=== PATIENT | female | born 1950 | race Caucasian/White ===

== ENCOUNTER 2020-07-11 06:00 | Outpatient (RCR) | payer MEDICARE, MEDICAID, SELFPAY | END 2020-08-04 23:59 | disposition home or self-care (01) | LOC: MOT 06:00 | PROVIDERS: Family Provider Nurse Practitioner Family; PCP Family Medicine; Referring Provider Family Medicine; Visit Provider Family Medicine | DX: R60.0 Localized edema (principal) | CPT/HCPCS: 97140; 97166 ==

== ENCOUNTER 2020-08-05 06:00 | Outpatient (RCR) | payer MEDICARE, MEDICAID, SELFPAY | END 2020-09-04 23:59 | disposition home or self-care (01) | LOC: MOT 06:00 | PROVIDERS: PCP Family Medicine; Referring Provider Family Medicine; Visit Provider Family Medicine | DX: R60.0 Localized edema (principal); R60.9 Edema, unspecified | CPT/HCPCS: 97140 ==

== ENCOUNTER 2020-11-17 06:00 | Outpatient (RCR) | payer MEDICARE, MEDICAID, SELFPAY | END 2020-12-05 23:59 | disposition home or self-care (01) | LOC: MOT 06:00 | PROVIDERS: PCP Family Medicine; Referring Provider Family Medicine; Visit Provider Family Medicine | DX: M54.2 Cervicalgia (principal) | CPT/HCPCS: 97110; 97140; 97166 ==

== ENCOUNTER 2020-12-06 06:00 | Outpatient (RCR) | payer MEDICARE, MEDICAID, SELFPAY | END 2021-01-04 23:59 | disposition home or self-care (01) | LOC: MOT 06:00 | PROVIDERS: PCP Family Medicine; Referring Provider Family Medicine; Visit Provider Family Medicine | DX: R60.0 Localized edema (principal) | CPT/HCPCS: 97110; 97140 ==

== ENCOUNTER 2021-02-23 06:00 | Outpatient (RCR) | payer MEDICARE, MEDICAID, SELFPAY | END 2021-03-06 23:59 | disposition home or self-care (01) | LOC: MOT 06:00 | PROVIDERS: PCP Family Medicine; Referring Provider Family Medicine; Visit Provider Family Medicine | DX: I89.0 Lymphedema, not elsewhere classified (principal); M54.2 Cervicalgia | CPT/HCPCS: 97140; 97166 ==

== ENCOUNTER 2021-03-07 11:53 | Outpatient (RCR) | payer MEDICARE, MEDICAID, SELFPAY | END 2021-04-06 23:59 | disposition home or self-care (01) | LOC: MOT 11:53 | PROVIDERS: PCP Family Medicine; Referring Provider Family Medicine; Visit Provider Family Medicine | DX: I89.0 Lymphedema, not elsewhere classified (principal); M54.2 Cervicalgia | CPT/HCPCS: 97140 ==

== ENCOUNTER 2021-04-07 06:00 | Outpatient (RCR) | payer MEDICARE, MEDICAID, SELFPAY | END 2021-05-07 23:59 | disposition home or self-care (01) | LOC: MOT 06:00 | PROVIDERS: PCP Family Medicine; Referring Provider Family Medicine; Visit Provider Family Medicine | DX: I89.0 Lymphedema, not elsewhere classified (principal); M54.2 Cervicalgia | CPT/HCPCS: 97110; 97140 ==

== ENCOUNTER 2021-05-01 21:35 | Emergency (ER) | payer MEDICARE, MEDICAID, SELFPAY ==
--- NOTE | 2021-05-01 21:37 | USR_ITS ---
PROCEDURE INFORMATION: Exam: US Duplex Left Lower Extremity Veins, Limited Exam date and time: 05/01/2021 9:37 PM Age: 71 years old Clinical indication: Lymphedema; Lower extremity, left; Additional info: Leg pain TECHNIQUE: Imaging protocol: Real-time Duplex ultrasound of the Left Lower Extremity with 2-D magaña scale, color Doppler flow and spectral waveform analysis with image documentation. Limited exam focused on the left lower extremity veins. COMPARISON: No relevant prior studies available. FINDINGS: Left deep veins: Unremarkable. The common femoral, femoral, proximal profunda femoral and popliteal veins are patent without thrombus. Normal Doppler waveforms. Normal compressibility and/or augmentation response. Left superficial veins: Unremarkable. Saphenofemoral junction is patent without thrombus. Soft tissues: Unremarkable. US/CV venous duplex [facility] [id number] IMPRESSION: No evidence of deep vein thrombosis.
[2021-05-01 21:44] VITALS: BP 121/61; PULSE 120; RESP 16; TEMP 36.6; O2SAT 97; BMI 45.8
--- NOTE | 2021-05-01 22:15 | ED_ITS ---
HPI - General Adult General: Chief complaint: General Medical Stated complaint: poss blood clot in left leg Time Seen by Provider: 05/01/21 22:09 Source: patient Mode of arrival: ambulatory Limitations: no limitations History of Present Illness: 71-year-old female who has a history of breast cancer is on chemotherapy states that she has been having increasing left lower leg swelling over the last few days states that she had an open wound appeared 2 weeks ago started with some erythema and swelling after that states her physical therapist was concerned she had a blood clot and sent her up here for that she is not had any fevers not been on antibiotics denies any chest pain or shortness of breath denies any worsening improving factors. She is on blood thinners. Associated symptoms: Deny chest pain, dyspnea, headache(s), nausea, rash or vomiting Review of Systems Const: Denies: fever(s), chills, body aches or change in appetite Eyes: Denies: blurry vision or eye discomfort ENMT: Denies: throat pain or dental pain Card: Denies: chest pain Resp: Denies: dyspnea GI: Denies: abdominal pain, nausea, vomiting or diarrhea : Denies: dysuria Musc: Reports: extremity pain and extremity swelling Skin/Breast: Denies: rash Neuro: Denies: headache(s) Psych: Denies: depression Anrde/Lymph: Denies: easy bruising All/Imm: Denies: urticaria PFSH ED PFSH: Medical History (Updated 05/01/21 @ 23:47 by Gonzalo Castillo MD) Breast cancer Social History Substance/Drug Use: never Physical Exam Const: COMMON NORMALS: no acute distress, patient oriented x3 and healthy appearing HENMT: COMMON NORMALS: normocephalic and atraumatic HEAD & SCALP: normocephalic and atraumatic Eye: COMMON NORMALS: Equal, round and reactive pupils present and EOMs intact bilaterally PUPIL: Yes Equal, round and reactive pupils present Neck/C-Spine: COMMON NORMALS: full ROM and supple Chest: COMMONS NORMALS: normal inspection of the chest and normal palpation of entire chest wall Resp: COMMON NORMALS: normal respiratory effort, No retractions, No use of accessory muscles and clear to auscultation bilaterally AUSCULTATION: clear to auscultation bilaterally Cardio: COMMON NORMALS: regular rate, regular rhythm and No murmurs present (Cardio) RATE: regular rate RHYTHM: regular rhythm GI: COMMON NORMALS: Normal to inspection, nondistended, normoactive bowel sounds present, Soft to palpation, non-tender and no masses PALPATION: Yes Soft to palpation Extremity: COMMON NORMALS: full ROM OTHER: Swelling erythema tenderness to left calf does have a open wound to the lateral portion of her calf slight cellulitis around it wound is superficial roughly 4 cm across Neuro: COMMON NORMALS: patient oriented x3, moves all extremities and no focal motor deficits Psych: COMMON NORMALS: mental status grossly normal, Normal thought process present and cooperative THOUGHT PROCESS: Normal thought process present Skin: COMMON NORMALS: no rashes or lesions noted and no wounds GENERAL SKIN EXAM: no rashes or lesions noted Course Vital Signs: Vital signs: Vital Signs Temperature 97.8 F 05/01/21 21:44 Pulse Rate 96 05/01/21 23:14 Respiratory Rate 22 H 05/01/21 23:14 Blood Pressure 121/61 05/01/21 21:44 Pulse Oximetry 96 05/01/21 23:14 [facility] - General Adult Medical Decision Making Patient presents here with left leg pain and slight cellulitis no DVT noted blood work here all looks normal we will start her on Bactrim she stable for discharge she is to follow-up with PCP and return if worsening. Lab Data : 05/01/21 22:43 05/01/21 22:43 Radiology Impressions Venous Duplex 05/01/21 21:37 IMPRESSION: No evidence of deep vein thrombosis. Laboratory Results WBC 6.5 10^3/uL (4.0-10.0) 05/01/21 22:43 Corrected WBC 6.1 10^3/cmm (4.8-10.8) 05/01/21 22:43 RBC 2.33 10^6/uL (4.1-5.3) L 05/01/21 22:43 Hgb 7.8 g/dL (11.5-15.3) L 05/01/21 22:43 Hct 24.4 % (37.0-47.0) L 05/01/21 22:43 MCV 104.7 fl (81-99) H 05/01/21 22:43 MCH 33.5 pg (28.0-34.0) 05/01/21 22:43 MCHC 32.0 g/dL (30.0-36.0) 05/01/21 22:43 RDW 17.1 % (12.1-15.1) H 05/01/21 22:43 Plt Count 146 10^3/cmm (130-400) 05/01/21 22:43 MPV 11.6 fL (7.4-10.4) H 05/01/21 22:43 Lymph % (Auto) Not Reportable 05/01/21:43 Bland % (Auto) Not Reportable 05/01/21:43 Lymph # (Auto) Not Reportable 05/01/21:43 Bland # (Auto) Not Reportable 05/01/21: Total Counted 100 (0-100) 05/01/21 22: Atypical Lymphs % 2.0 % (0-5) 05/01/21 22: Absolute Neutrophils 4.2 10^3/cmm (1.4-6.5) 05/01/21 22: Segmented Neutrophils 44 % 05/01/21 22: Abs Segm Neuts (Man) 2.9 10/cmm (1.6-7.1) 05/01/21 22: Band Neutrophils 21.0 % 05/01/21: Abs Band Neuts (Man) 1.4 10^3/cmm (0.0-1.2) H 05/01/21 22:43 Absolute Lymphocytes 1.1 10^3/cmm (1.2-3.4) L 05/01/21 22:43 Lymphocytes (Manual) 15 % 05/01/21 22:43 Monocytes (Manual) 13.0 % 05/01/21 22:43 Absolute Monocytes 0.8 10^3/cmm (0.1-0.6) H 05/01/21 22:43 Eosinophils (Manual) 2 % 05/01/21: Absolute Eosinophils 0.1 10^3/cmm (0.0-0.7) 05/01/21 22:43 Basophils (Manual) 0.0 % 05/01/21: Absolute Basophils 0.0 10^3/cmm (0.0-0.2) 05/01/21 22:43 Metamyelocytes 2.0 % 05/01/21 22:43 Myelocytes 1.0 % 05/01/21 22:43 Nucleated RBCs 7.0 /100WBC (0-1) H 05/01/21 22:43 Pathologist Review Yes 05/01/21 22:43 Platelet Estimate Normal (Normal) 05/01/21 22:43 Polychromasia 1+ H 05/01/21 22:43 Basophilic Stippling Trace 05/01/21 22:43 PT 24.40 SECONDS (12.1-14.9) H 05/01/21 22:43 INR 2.14 (0.8-1.2) H 05/01/21 22:43 Sodium 141 mmol/L (136-145) 05/01/21 22:43 Potassium 3.4 mmol/L (3.5-5.1) L 05/01/21 22:43 Chloride 103 mmol/L (98-107) 05/01/21 22:43 Carbon Dioxide 27 mmol/L (22-29) 05/01/21 22:43 Anion Gap 14.4 (5-19) 05/01/21 22:43 BUN 18 mg/dL (8-23) 05/01/21 22:43 Creatinine 1.1 mg/dL (0.5-0.9) H 05/01/21 22:43 GFR Calculation Not Reportable 05/01/21 22:43 Glucose 79 mg/dL (65-115) 05/01/21 22:43 Calculated Osmolality 293 mOsm/kg (285-295) 05/01/21 22:43 Calcium 7.9 mg/dL (8.5-10.5) L 05/01/21 22:43 Discharge Plan Discharge Patient Disposition: Home Clinical Impression: Left leg pain, Cellulitis Prescriptions: New Bactrim DS 800-160 mg tablet 1 tab PO BID 10 Days Qty: 20 0RF Discharge Orders: Discharge ED (Routine); Ordered 05/01/21 Ordered By: Gonzalo Castillo Referrals: Hank Dick DO [Primary Care Provider] - 1-3 days Discharge Diet: Advance as tolerated Discharge Activity: Resume usual activity Patient Instructions: Cellulitis (ED) Coding Level of Care Code ED [employer] Consultant for Chg Fwd Exam Comprehensive
[2021-05-01 22:51] LABS: Hematocrit 24.4 % (37.0-47.0); Hemoglobin 7.8 g/dL (11.5-15.3); Mean Corpuscular Hemoglobin 33.5 pg (28.0-34.0); Mean Corpuscular Volume 104.7 fl (81-99); Mean Platelet Volume 11.6 fL (7.4-10.4); Platelet Count 146 10^3/cmm (130-400); Red Blood Count 2.33 10^6/uL (4.1-5.3); Red Cell Distribution Width 17.1 % (12.1-15.1); White Blood Count 6.5 10^3/uL (4.0-10.0)
[2021-05-01 23:01] LABS: INR 2.14 (0.8-1.2)
[2021-05-01 23:05] LABS: Anion Gap 14.4 (5-19); Blood Urea Nitrogen 18 mg/dL (8-23); Calcium 7.9 mg/dL (8.5-10.5); Carbon Dioxide 27 mmol/L (22-29); Chloride 103 mmol/L (98-107); Glucose 79 mg/dL (65-115); Osmolality Calculated 293 mOsm/kg (285-295); Potassium 3.4 mmol/L (3.5-5.1); Sodium 141 mmol/L (136-145)
[2021-05-01 23:06] VITALS: RESP 22
[2021-05-01] MEDS: ondansetron 2 mg/ML SDV 2 mL 4 MG IVP (23:06)
[2021-05-01] MEDS: morphine 4 mg/mL SDV 1 mL 2 MG IVP (23:06)
[2021-05-01 23:14] VITALS: PULSE 96; RESP 22; O2SAT 96
[2021-05-01 23:20] LABS: Slide Review Slide Review Perform
[2021-05-01 23:24] LABS: Absolute Eosinophils 0.1 10^3/cmm (0.0-0.7); Absolute Neutrophil 4.2 10^3/cmm (1.4-6.5); Absolute Segmented Neutrophil 2.9 10/cmm (1.6-7.1); Band Neutrophils Absolute 1.4 10^3/cmm (0.0-1.2); Basophilic Stippling Trace; Corrected White Blood Count 6.1 10^3/cmm (4.8-10.8); Eosinophils 2 %; Lymphocytes 15 %; Lymphocytes Absolute 1.1 10^3/cmm (1.2-3.4); Monocytes Absolute 0.8 10^3/cmm (0.1-0.6); Pathology Refferal Yes; Platelet Estimate Normal (Normal); Polychromasia 1+; Segmented Neutrophils 44 %; Total Cells Counted 100 (0-100)
[2021-05-01] MEDS: sodium chloride 0.9% 500 ML 999 ML IV (23:58)
[2021-05-02 00:33] VITALS: BP 99/76; PULSE 84; RESP 18; TEMP 36.7; O2SAT 99
[2021-05-02 00:34] VITALS: BP 99/76; PULSE 84; RESP 18; TEMP 37.1; O2SAT 99
[2021-05-03 13:58] LABS: Miscellaneous Test See Scanned Lab Rpt
== END 2021-05-02 00:47 | disposition home or self-care (01) ==
PROVIDERS: Emergency Provider Emergency Medicine; PCP Family Medicine
DX: L03.116 Cellulitis of left lower limb (principal); M79.605 Pain in left leg; Z85.3 Personal history of malignant neoplasm of breast; Z79.899 Other long term (current) drug therapy
CPT/HCPCS: 80048; 80500; 85007; 85025; 85610; 88184; 88185; 93971; 96374; 96375; 99283; J2270; J2405; J7040

== ENCOUNTER 2021-05-08 06:00 | Outpatient (RCR) | payer MEDICARE, MEDICAID, SELFPAY | END 2021-06-04 23:59 | disposition home or self-care (01) | LOC: MOT 06:00 | PROVIDERS: PCP Family Medicine; Visit Provider Family Medicine | DX: R60.0 Localized edema (principal); C50.912 Malignant neoplasm of unspecified site of left female breast; I50.32 Chronic diastolic (congestive) heart failure; Z90.13 Acquired absence of bilateral breasts and nipples | CPT/HCPCS: 97110; 97140; 97535 ==

== ENCOUNTER 2021-06-05 06:00 | Outpatient (RCR) | payer MEDICARE, MEDICAID, SELFPAY | END 2021-07-05 23:59 | disposition home or self-care (01) | LOC: MOT 06:00 | PROVIDERS: PCP Family Medicine; Visit Provider Family Medicine | DX: R60.0 Localized edema (principal); Z90.13 Acquired absence of bilateral breasts and nipples; I50.32 Chronic diastolic (congestive) heart failure; C50.912 Malignant neoplasm of unspecified site of left female breast | CPT/HCPCS: 97110; 97140; 97535 ==

== ENCOUNTER 2021-07-06 06:00 | Outpatient (RCR) | payer MEDICARE, MEDICAID, SELFPAY | END 2021-08-04 23:59 | disposition home or self-care (01) | LOC: MOT 06:00 | PROVIDERS: PCP Family Medicine; Visit Provider Family Medicine | DX: I89.0 Lymphedema, not elsewhere classified (principal) | CPT/HCPCS: 97110; 97140 ==

== ENCOUNTER 2021-07-17 06:00 | Outpatient (RCR) | payer MEDICARE, MEDICAID, SELFPAY | END 2021-08-04 23:59 | disposition home or self-care (01) | LOC: MPT 06:00 | PROVIDERS: PCP Family Medicine; Visit Provider Student in an Organized Health Care Education/Training Program | DX: G95.9 Disease of spinal cord, unspecified (principal); Z98.1 Arthrodesis status | CPT/HCPCS: 95992; 97110; 97162 ==

== ENCOUNTER 2021-08-05 06:00 | Outpatient (RCR) | payer MEDICARE, MEDICAID, SELFPAY | END 2021-09-04 23:59 | disposition home or self-care (01) | LOC: MOT 06:00 | PROVIDERS: PCP Family Medicine; Visit Provider Family Medicine | DX: I97.2 Postmastectomy lymphedema syndrome (principal); M54.2 Cervicalgia | CPT/HCPCS: 97140 ==

== ENCOUNTER 2021-08-05 06:00 | Outpatient (RCR) | payer MEDICARE, MEDICAID, SELFPAY | END 2021-09-04 23:59 | disposition home or self-care (01) | LOC: MPT 06:00 | PROVIDERS: PCP Family Medicine; Visit Provider Student in an Organized Health Care Education/Training Program | DX: Z98.1 Arthrodesis status (principal); G95.9 Disease of spinal cord, unspecified | CPT/HCPCS: 97110; 97112; 97140 ==

== ENCOUNTER 2021-08-21 06:00 | Outpatient (RCR) | payer MEDICARE, MEDICAID, SELFPAY | END 2021-09-04 23:59 | disposition home or self-care (01) | LOC: MPT 06:00 | PROVIDERS: PCP Family Medicine; Referring Provider Family Medicine; Visit Provider Family Medicine | DX: N31.9 Neuromuscular dysfunction of bladder, unspecified (principal); G82.52 Quadriplegia, C1-C4 incomplete; Z98.890 Other specified postprocedural states | CPT/HCPCS: 97110; 97140; 97161; 97530 ==

== ENCOUNTER 2021-09-05 06:00 | Outpatient (RCR) | payer MEDICARE, MEDICAID, SELFPAY | END 2021-10-04 23:59 | disposition home or self-care (01) | LOC: MPT 06:00 | PROVIDERS: PCP Family Medicine; Referring Provider Family Medicine; Visit Provider Family Medicine | DX: N31.9 Neuromuscular dysfunction of bladder, unspecified (principal); G82.52 Quadriplegia, C1-C4 incomplete; Z98.890 Other specified postprocedural states | CPT/HCPCS: 97140; 97530 ==

== ENCOUNTER 2021-09-05 06:00 | Outpatient (RCR) | payer MEDICARE, MEDICAID, SELFPAY | END 2021-10-04 23:59 | disposition home or self-care (01) | LOC: MPT 06:00 | PROVIDERS: PCP Family Medicine; Visit Provider Student in an Organized Health Care Education/Training Program | DX: N31.9 Neuromuscular dysfunction of bladder, unspecified (principal); G82.52 Quadriplegia, C1-C4 incomplete; Z98.1 Arthrodesis status; M62.81 Muscle weakness (generalized); M54.2 Cervicalgia; R26.81 Unsteadiness on feet | CPT/HCPCS: 97110; 97140 ==

== ENCOUNTER 2021-10-05 06:00 | Outpatient (RCR) | payer MEDICARE, MEDICAID, SELFPAY | END 2021-11-04 23:59 | disposition home or self-care (01) | LOC: MPT 06:00 | PROVIDERS: PCP Family Medicine; Visit Provider Student in an Organized Health Care Education/Training Program | DX: M54.2 Cervicalgia (principal); M62.81 Muscle weakness (generalized); R26.81 Unsteadiness on feet | CPT/HCPCS: 97110; 97140 ==

== ENCOUNTER 2021-11-05 06:00 | Outpatient (RCR) | payer MEDICARE, MEDICAID, SELFPAY | END 2021-12-05 23:59 | disposition home or self-care (01) | LOC: MPT 06:00 | PROVIDERS: PCP Family Medicine; Visit Provider Student in an Organized Health Care Education/Training Program | DX: N31.9 Neuromuscular dysfunction of bladder, unspecified (principal); G82.52 Quadriplegia, C1-C4 incomplete; Z98.890 Other specified postprocedural states | CPT/HCPCS: 97110; 97140 ==

== ENCOUNTER 2021-12-06 06:00 | Outpatient (RCR) | payer MEDICARE, MEDICAID, SELFPAY | END 2022-01-04 23:59 | disposition home or self-care (01) | LOC: MPT 06:00 | PROVIDERS: PCP Family Medicine; Visit Provider Student in an Organized Health Care Education/Training Program | DX: N31.9 Neuromuscular dysfunction of bladder, unspecified (principal); G82.52 Quadriplegia, C1-C4 incomplete | CPT/HCPCS: 97110; 97140 ==

== ENCOUNTER 2022-01-05 06:00 | Outpatient (RCR) | payer MEDICARE, MEDICAID, SELFPAY | END 2022-02-04 23:59 | disposition home or self-care (01) | LOC: MPT 06:00 | PROVIDERS: PCP Family Medicine; Visit Provider Student in an Organized Health Care Education/Training Program | DX: M54.2 Cervicalgia (principal); M62.81 Muscle weakness (generalized); R26.81 Unsteadiness on feet | CPT/HCPCS: 97110; 97140 ==

== ENCOUNTER → 2022-01-20 15:16 | Outpatient (BNVA) | payer MEDICARE, MEDICAID, SELFPAY | PROVIDERS: PCP Family Medicine; Visit Provider Nurse Practitioner Family | DX: R30.0 Dysuria (principal) | CPT/HCPCS: 81000; 87077; 87086; 87184 ==

== ENCOUNTER 2022-02-05 06:00 | Outpatient (RCR) | payer MEDICARE, MEDICAID, SELFPAY | END 2022-02-25 23:59 | disposition home or self-care (01) | LOC: MPT 06:00 | PROVIDERS: PCP Family Medicine; Visit Provider Student in an Organized Health Care Education/Training Program | DX: N31.9 Neuromuscular dysfunction of bladder, unspecified (principal); G82.52 Quadriplegia, C1-C4 incomplete | CPT/HCPCS: 97110; 97140 ==

== ENCOUNTER → 2022-02-19 17:31 | Outpatient (BNVA) | payer MEDICARE, MEDICAID, SELFPAY | PROVIDERS: PCP Family Medicine; Visit Provider Nurse Practitioner Family | DX: R10.9 Unspecified abdominal pain (principal); N12 Tubulo-interstitial nephritis, not specified as acute or chronic | CPT/HCPCS: 80053; 81000; 85025 ==

== ENCOUNTER 2022-04-11 06:00 | Outpatient (RCR) | payer MEDICARE, MEDICAID, SELFPAY | END 2022-05-07 23:59 | disposition home or self-care (01) | LOC: MOT 06:00 | PROVIDERS: Visit Provider Family Medicine | DX: I89.0 Lymphedema, not elsewhere classified (principal); Z42.1 Encounter for breast reconstruction following mastectomy; M48.02 Spinal stenosis, cervical region | CPT/HCPCS: 97140; 97166; 97530 ==

== ENCOUNTER 2022-05-08 06:00 | Outpatient (RCR) | payer MEDICARE, MEDICAID, SELFPAY | END 2022-06-04 23:59 | disposition home or self-care (01) | LOC: MOT 06:00 | PROVIDERS: Visit Provider Family Medicine | DX: I89.0 Lymphedema, not elsewhere classified (principal) | CPT/HCPCS: 97140; 97535 ==

== ENCOUNTER 2022-06-05 06:00 | Outpatient (RCR) | payer MEDICARE, MEDICAID, SELFPAY | END 2022-07-05 23:59 | disposition home or self-care (01) | LOC: MOT 06:00 | PROVIDERS: Visit Provider Family Medicine | DX: M48.062 Spinal stenosis, lumbar region with neurogenic claudication (principal); M47.816 Spondylosis without myelopathy or radiculopathy, lumbar region; M51.06 Intervertebral disc disorders with myelopathy, lumbar region; M51.16 Intervertebral disc disorders with radiculopathy, lumbar region | CPT/HCPCS: 97140 ==

== ENCOUNTER 2022-07-06 06:00 | Outpatient (RCR) | payer MEDICARE, MEDICAID, SELFPAY | END 2022-08-04 23:59 | disposition home or self-care (01) | LOC: MOT 06:00 | PROVIDERS: Visit Provider Family Medicine | DX: I89.0 Lymphedema, not elsewhere classified (principal) | CPT/HCPCS: 97140 ==

== ENCOUNTER 2022-07-10 06:00 | Outpatient (RCR) | payer MEDICARE, MEDICAID, SELFPAY | END 2022-08-04 23:59 | disposition home or self-care (01) | LOC: MPT 06:00 | PROVIDERS: Visit Provider Anesthesiology | DX: G95.19 Other vascular myelopathies (principal); M47.816 Spondylosis without myelopathy or radiculopathy, lumbar region; M54.16 Radiculopathy, lumbar region; M51.36 Other intervertebral disc degeneration, lumbar region | CPT/HCPCS: 97110; 97140; 97162 ==

== ENCOUNTER 2022-08-05 06:00 | Outpatient (RCR) | payer MEDICARE, MEDICAID, SELFPAY | END 2022-09-04 23:59 | disposition home or self-care (01) | LOC: MPT 06:00 | PROVIDERS: Visit Provider Anesthesiology | DX: M47.896 Other spondylosis, lumbar region (principal); M48.062 Spinal stenosis, lumbar region with neurogenic claudication | CPT/HCPCS: 97110; 97140 ==

== ENCOUNTER 2022-09-05 06:00 | Outpatient (RCR) | payer MEDICARE, MEDICAID, SELFPAY | END 2022-10-04 23:59 | disposition home or self-care (01) | LOC: MPT 06:00 | PROVIDERS: Visit Provider Anesthesiology | DX: G95.19 Other vascular myelopathies (principal); M47.816 Spondylosis without myelopathy or radiculopathy, lumbar region; M54.16 Radiculopathy, lumbar region; M51.36 Other intervertebral disc degeneration, lumbar region | CPT/HCPCS: 97110; 97140 ==

== ENCOUNTER 2022-10-05 06:00 | Outpatient (RCR) | payer MEDICARE, MEDICAID, SELFPAY | END 2022-11-04 23:59 | disposition home or self-care (01) | LOC: MPT 06:00 | PROVIDERS: Visit Provider Anesthesiology | DX: M47.896 Other spondylosis, lumbar region (principal); M48.062 Spinal stenosis, lumbar region with neurogenic claudication | CPT/HCPCS: 97110; 97140; 97530 ==

== ENCOUNTER 2022-11-05 06:00 | Outpatient (RCR) | payer MEDICARE, MEDICAID, SELFPAY | END 2022-12-05 23:59 | disposition home or self-care (01) | LOC: MPT 06:00 | PROVIDERS: Visit Provider Anesthesiology | DX: M47.896 Other spondylosis, lumbar region (principal); M48.062 Spinal stenosis, lumbar region with neurogenic claudication | CPT/HCPCS: 97110; 97140; 97530 ==

== ENCOUNTER 2022-12-06 06:00 | Outpatient (RCR) | payer MEDICARE, MEDICAID, SELFPAY | END 2023-01-04 23:59 | disposition home or self-care (01) | LOC: MPT 06:00 | PROVIDERS: Visit Provider Anesthesiology | DX: G95.19 Other vascular myelopathies (principal); M47.816 Spondylosis without myelopathy or radiculopathy, lumbar region | CPT/HCPCS: 97110; 97140 ==

== ENCOUNTER 2023-01-05 06:00 | Outpatient (RCR) | payer MEDICARE, MEDICAID, SELFPAY | END 2023-02-04 23:59 | disposition home or self-care (01) | LOC: MPT 06:00 | PROVIDERS: PCP Family Medicine; Visit Provider Anesthesiology | DX: G95.19 Other vascular myelopathies (principal); M47.816 Spondylosis without myelopathy or radiculopathy, lumbar region; M54.16 Radiculopathy, lumbar region; M51.36 Other intervertebral disc degeneration, lumbar region | CPT/HCPCS: 97110; 97140 ==